=== PATIENT | male | born 1990 | race Caucasian/White ===

== ENCOUNTER 2018-07-11 18:34 | Emergency (ER) | payer SELFPAY ==
[~2018-07-11] VITALS: Ht 180.3 cm; Wt 174.3 kg
[~2018-07-11 18:34] MED LIST: BACTDS PO; CIPR7.5D LEFT EAR; CLIN300C10 PO; FAMO20TA18 PO; HYDR-3498 PO; IBUP-1542 PO; IBUP200C11 PO; IBUP800T48 PO; NPH10OT LEFT EAR; ONDA4TAB8 PO; RIFA300C53 PO
[2018-07-11 18:58] VITALS: BP 157/98; PULSE 105; RESP 20; Ht 180.3 cm; Wt 174.3 kg
== END 2018-07-12 00:20 | disposition left against medical advice (07) ==
LOC: E/R 18:34
DX: Z53.21 Procedure and treatment not carried out due to patient leaving prior to being seen by health care provider (principal)
CPT/HCPCS: 93005